=== PATIENT | female | born 1990 | race Hispanic/Latino ===

== ENCOUNTER 2017-07-19 18:55 | Day surgery (SDC) | payer SELFPAY ==
[2017-07-19 20:22] LABS: #Eosinphils 0.1 thou/uL (0.0-0.7); #Lymphocytes 1.7 thou/uL (1.20-3.40); #Monocytes 0.4 thou/uL (0.11-0.59); #Neutrophils 5.7 thou/uL (1.40-6.50); %Basophils 0.4 % (0.0-1.0); %Eosinophils 1.8 % (0.0-10.0); %Lymphocytes 21.6 % (21.0-51.0); %Monocytes 4.8 % (0.0-10.0); %Neutrophils 71.5 % (42.0-75.0); Hemoglobin 12.5 g/dL (12.0-16.0); Mean Corpuscular HGB CONC 35.4 g/dL (32.0-36.0); Mean Corpuscular Hemoglobin 34.5 pg (27.0-31.0); Mean Corpuscular Volume 97.4 fl (81.0-99.0); Mean Platelet Volume 6.5 fL (7.4-10.4); Platelet Count 269 thou/uL (130-400); RBC Distribution Width 11.1 % (11.5-14.5); Red Blood Cell (RBC) Count 3.62 mill/uL (4.20-5.40)
--- NOTE | 2017-07-19 20:28 | ULT ---
ULTRASOUND OB COMPLETE 07/19/17 HISTORY: Vaginal bleeding. COMPARISON: None. TECHNIQUE: Real time westfall scale, color doppler and spectral analysis of the gravid uterus performed transabdomin al approach. Single viable intrauterine with average ultrasound age of 23 weeks, 0 day. Estimated date o f delivery 11/15/17. Estimated weight is 1 lb. 4 oz. Biparietal diameter 23 week, 1 day, 5.61 cm. Head circumference 23 week, 1 day, 21.1 cm. Abdominal circumference 23 week, 2 day, 18.5 cm. Femur length 22 week, 6 day, 3.99 cm. position is breech and placenta is anterior. heart rate documented at 150 beats per minut e. Amniotic fluid index is 14.1. Limited anatomy is normal. IMPRESSION: Normal single viable intrauterine . POS: NAVDEEP
[2017-07-19 20:51] LABS: ALT (SGPT) 8 U/L (8-55); AST (SGOT) 14 U/L (5-34); Albumin 3.9 g/dL (3.5-5.0); Alkaline Phosphatase 63 U/L (40-150); Anion Gap 13 mmol/L (10-20); BUN (Urea Nitrogen) 7 mg/dL (7.0-18.7); Bilirubin, Total 0.4 mg/dL (0.2-1.2); Calc. Creatinine Clearance 0 mL/min (70-130); Calcium 9.3 mg/dL (7.8-10.44); Carbon Dioxide 20 mmol/L (22-29); Chloride 107 mmol/L (98-107); Estimated GFR-MDRD Greater than 90; Globulin 3.2 g/dL (2.4-3.5); Glucose 79 mg/dL (70-105); Potassium 3.6 mmol/L (3.5-5.1); Protein, Total 7.1 g/dL (6.0-8.3); Sodium 136 mmol/L (136-145)
[2017-07-19 21:12] VITALS: BP 124/80; TEMP 98.9; BMI 19.5
[2017-07-19 22:25] LABS: Bilirubin Negative (Negative); Blood, Urine Trace (Negative); Clarity CLOUDY (Clear); Glucose, Urine (Dipstick) Negative (Negative); Leukocyte Large (Negative); Nitrite Positive (Negative); Protein, Urine (Dipstick) 100 mg/dL (Neg-Trace); Specific Gravity, Urine 1.019 (1.002-1.036)
[2017-07-19 22:28] LABS: Bacteria/HPF 1+ HPF (None Seen); Hyaline Casts/LPF 0-3 HYALINE CAST LPF (0-3 Hyaline); Pathc Cast-AUWi Flag 0.14 (0-2.49); Squamous Epithelial None Seen HPF (0-3)
[2017-07-19 22:48] LABS: Amphetamine Not Detected (NotDetected); Barbiturates Screen Not Detected (NotDetected); Benzodiazepine Screen Not Detected (NotDetected); Cocaine Metabolite Screen Not Detected (NotDetected); Medtox Control Line Valid? VALID (VALID); Medtox Reader # READER 1; Methadone Not Detected (NotDetected); Methamphetamine Not Detected (NotDetected); Opiate Screen Not Detected (NotDetected); Oxycodone Screen Not Detected (NotDetected); Phencyclidine (PCP) Not Detected (NotDetected); THC/Cannabinoid Screen Not Detected (NotDetected); Tricyclic Screen Not Detected (NotDetected)
[2017-07-19 23:06] LABS: Syphilis Antibody Nonreactive (Nonreactive); Syphilis Antibody Index 0.06 S/CO (<1.00 Non-Reactive)
--- NOTE | 2017-07-19 23:13 | ULT ---
ULTRASOUND PELVIC TRANSVAGINAL FOR CERVICAL LENGTH 07/19/17 HISTORY: Evaluate cervix. COMPARISON: OB ultrasound same day. FINDINGS: The cervical length is 3.4 cm and is closed. IMPRESSION: Closed cervix of 3.4 cm in length. POS: MARIE
[2017-07-20 00:44] LABS: Hep B Surf AB Reactive (NonReactive)
[2017-07-20 00:45] LABS: HBSAB Concentration 141.72 mIU/mL
--- NOTE | 2017-07-20 08:48 | PRG ---
DATE OF SERVICE: 07/19/2017. No care up to now. HISTORY OF PRESENT ILLNESS: The patient is a 27-year-old G4, P2 female with an intrauterine pregnanc y at 23 weeks who presented to the emergency room with vaginal spotting with wiping and cramping. Th e patient only a couple weeks before discovered her with a positive test at home. She did not know how far along she was. Once the patient was evaluated in the emergency room, she is brought out to the Labor and Delivery for further evaluation. Here, she reports admits to being a heavy drinker, drinking 6-8 alcoholic beverages 3 times a night and that she has been doing this for a long-term even at the time of conception. She also admits to tobacco use and is concerned about r ecent herpes exposure from her boyfriend. The patient reports that she has been experiencing crampin g about 2-3 times a day and that she has light pink on the toilet paper when she wipes. She denies a ny fever, headache, chest pain, shortness of breath, nausea, vomiting, diarrhea, constipation. She d enies any rashes, hip problems, knee problems, muscle weakness. She denies change in discharge. She does report she has pain in her lower abdomen, it hurts when she pees and she reports frequent urina ry tract infections in the past. 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 PAST SURGICAL HISTORY: D&C and tonsillectomy. OB HISTORY: The patient reports a history of labor at 30 weeks, reports that she arrested at 7 cm dilation and eventually was delivered spontaneously at 38. We demonstrate 36 weeks after spont aneous rupture of membranes. Her subsequent pregnancies she said she delivered at 37 weeks. ALLERGIES: No known drug allergies. MEDICATIONS: None. REVIEW OF SYSTEMS: Per HPI. PHYSICAL EXAMINATION: VITAL SIGNS: Blood pressure is 107/71, heart rate of 79, respiratory rate 18, satting 97% on room ai r, temperature 98.9. GENERAL: She appears to be in no acute distress. She is alert and oriented, cooperative and pleasan t to interact with. HEENT: Head is normocephalic, atraumatic. CHEST: Clear to auscultation bilaterally. HEART: Regular rate and rhythm. ABDOMEN: Soft, gravid, nontender to palpation. EXTREMITIES: Nontender, nonedematous. She has no CVA tenderness. No paravertebral tenderness to pa lpation. EXTREMITIES: Nontender, nonedematous. PELVIC: Vulva is without masses, lesions or erythema. Vagina is moist, cervix appears to be closed and full. HOT DIP PLATER-3 was collected. fibronectin was unable to be collected due to just a recent vag inal exam from the emergency room staff. On digital exam, the patient has a long, thick cervix that is fingertip to 1 cm, but firm. heart tracing performed for abdominal pain. heart tones were noted to be in 140 beats pe r minute. Ultrasound performed in the emergency room confirmed an intrauterine at 23 weeks . Cervical length is 3.5 cm. LABORATORY STUDIES: White count is 8.0, hemoglobin 12.5, hematocrit 35.2, platelets 269,000. Fibrin ogen 418, creatinine 0.56. Urine shows a pH of 7, glucose of 100, ketones of 15, positive nitrites, large leukocyte esterase, red blood cells, white blood cells more than 50 per high power field, 1+ ba cteria. Drug screen is negative, syphilis is nonreactive. Hepatitis B surface antibody is reactive. Blood type is O positive. Vaginitis screen is positive for Gardnerella. Vulva is without any lesions of concern for herpes. ASSESSMENT AND PLAN: The patient is a 27-year-old G4, P2 female with a recent diagnosis of today dated by a 23 week ultrasound, who presented with cramping and spotting when she wipes. The p atient has no evidence of labor. She does have a urinary tract infection and bacterial vaginosis for which she has been given Macrobid 100 mg twice a day for the next 7 days and Flagyl, metronidazole 5 00 mg twice a day for the next 7 days. The patient reports that she will stop drinking and she is un concerned about having withdrawals. Cervix is sufficiently long at 3.5 cm. Fetus is nonviable at th is point. The patient has been encouraged to seek medical attention with a primary OB provider of jaswinder.
[2017-07-22 21:12] LABS: Chlamydia by PCR Not Detected (NotDetected); GC by PCR Not Detected (NotDetected)
[2017-07-23 17:11] LABS: HSV 2 - DNA Negative (Negative)
== END 2017-07-19 23:50 | disposition home or self-care (01) ==
LOC: ERS 18:55 → L&D/OP 21:05
PROVIDERS: ATTEND Obstetrics & Gynecology
DX: O46.92 Antepartum hemorrhage, unspecified, second trimester (principal); O09.212 Supervision of pregnancy with history of pre-term labor, second trimester; O99.332 Smoking (tobacco) complicating pregnancy, second trimester; O23.42 Unspecified infection of urinary tract in pregnancy, second trimester; O23.592 Infection of other part of genital tract in pregnancy, second trimester; B96.89 Other specified bacterial agents as the cause of diseases classified elsewhere; Z3A.23 23 weeks gestation of pregnancy
CPT/HCPCS: 36415; 76805; 76856; 80053; 80306; 81001; 84702; 85025; 85384; 86706; 86762; 86780; 86900; 86901; 87480; 87491; 87510; 87529; 87591; 87660; 99285

== ENCOUNTER 2021-11-01 15:57 | Emergency (ER) | payer OTHER, SELFPAY ==
[2021-11-01 17:14] LABS: SARS-CoV-2 NAA Rapid Test Not Detected (NotDetected)
== END 2021-11-01 17:24 | disposition home or self-care (01) ==
LOC: ERS 15:57
DX: J06.9 Acute upper respiratory infection, unspecified (principal); Z20.822 Contact with and (suspected) exposure to COVID-19
CPT/HCPCS: 71045